=== PATIENT | male | born 1960 | race Caucasian/White ===

== ENCOUNTER 2020-06-07 08:02 | Emergency (ER) | payer OTHER ==
[~2020-06-07] VITALS: Ht 182.9 cm; Wt 74.8 kg
[~2020-06-07 08:02] MED LIST: FLEXERIL PO; IBUPROFEN 400400 M1 PO; IBUPROFEN 800800 M1 PO; LOPRESSOR25 PO; NOHOMEMEDICATIONS; NORCO 5-325 TA1 EACH PO; PEPCID20 MG PO; PRILOSEC 20 MG20 MG PO; TESSALON200 MG PO; VENTOLIN HFA 1818 GM INH; ZPAK PO
[2020-06-07 08:52] LABS: ABSOLUTE NEUTROPHILS 5.1 thou/uL (1.4-8.2); BASOPHILS 0.7 % (0.0-2.0); EOSINOPHILS 3.7 % (0.0-3.0); HEMATOCRIT 42.2 % (42.0-52.0); HEMOGLOBIN 14.1 gm/dL (14.0-18.0); LYMPHOCYTES 27.7 % (24.0-44.0); MCH 30.6 pg (26.0-34.0); MCHC 33.5 g/dL (28.0-37.0); MCV 91.3 fL (80.0-100.0); MONOCYTES 8.3 % (1.0-8.0); PLATELET COUNT 365 thou/uL (150-400); POLYS 59.6 % (36.0-66.0); RBC 4.62 mil/uL (4.50-6.00); RDW 13.1 % (10.5-14.5); WBC 8.6 thou/uL (4.0-11.0)
[2020-06-07 09:00] LABS: ANION GAP 8 mmol/L (7-16); BUN 25 mg/dL (7-18); CALCIUM 9.1 mg/dL (8.5-10.1); CHLORIDE 103 mmol/L (98-107); CO2 29 mmol/L (21-32); CREATININE 1.5 mg/dL (0.7-1.3); GLUCOSE 94 mg/dL (74-106); POTASSIUM 4.2 mmol/L (3.5-5.1); SODIUM 140 mmol/L (136-145)
[2020-06-07 09:05] LABS: MAGNESIUM 1.7 mg/dL (1.8-2.4); TROPONIN-I <0.06 ng/mL (<0.06)
[2020-06-07 11:40] VITALS: BP 156/94
--- NOTE | 2020-06-07 15:58 | EKG ---
[facility] [place] [address] ELECTROCARDIOGRAM REPORT Name: MOHAMUD ELDER Room #: DEP [facility]#: [id number] Admission: 06/07/20 Attend Phys: Discharge: 06/07/20 Date of : 62 Report #: [id number] THIS REPORT FOR: cc: MICHEL - Ebony family physician/PCP MICHEL - [facility] family physician/PCP Edmundo Langston MD [facility] THIS REPORT FOR: //name// [facility] ED Test Date: 2020-06-07 Test Time: 08:44:01 Pat Name: MOHAMUD ELDER Department: Room: Gender: Metal [employer]: esheets : 1960 Requested By: Jorge A Palomo Order Number: [id number] MD: Edmundo Langston Measurements Intervals [place] Rate: 93 P: 81 MA: 152 QRS: 70 QRSD: 87 T: 80 QT: 384 QTc: 478 Interpretive Statements Sinus rhythm Consider left atrial enlargement Anteroseptal infarct, old Compared to ECG 04/12/2016 12:47:44 Myocardial infarct finding now present Sinus tachycardia no longer present Electronically Signed On 06-07-2020 15:58:08 CDT by Edmundo Langston [email or web address] <ELECTRONICALLY SIGNED> By: Edmundo Langston MD, FACC 06/07/20 1558 0844 Edmundo Langston MD, [facility] /EPI
== END 2020-06-07 11:40 | disposition home or self-care (01) ==
LOC: ER 08:02
PROVIDERS: Emergency Medicine
DX: R20.2 Paresthesia of skin (principal); R51.9 Headache, unspecified; I10 Essential (primary) hypertension; J44.9 Chronic obstructive pulmonary disease, unspecified; F17.210 Nicotine dependence, cigarettes, uncomplicated; Z79.899 Other long term (current) drug therapy; Z88.0 Allergy status to penicillin

== ENCOUNTER 2020-12-24 11:39 | Emergency (ER) | payer OTHER ==
[~2020-12-24] VITALS: Ht 182.9 cm; Wt 77.1 kg
[2020-12-24 12:30] LABS: ABSOLUTE NEUTROPHILS 5.9 thou/uL (1.4-8.2); BASOPHILS 0.7 % (0.0-2.0); EOSINOPHILS 2.9 % (0.0-3.0); HEMATOCRIT 40.7 % (42.0-52.0); HEMOGLOBIN 13.8 gm/dL (14.0-18.0); LYMPHOCYTES 18.5 % (24.0-44.0); MCV 91.2 fL (80.0-100.0); MONOCYTES 7.7 % (1.0-8.0); PLATELET COUNT 315 thou/uL (150-400); POLYS 70.2 % (36.0-66.0); RBC 4.47 mil/uL (4.50-6.00); RDW 13.4 % (10.5-14.5); WBC 8.4 thou/uL (4.0-11.0)
[2020-12-24 12:38] LABS: CALCIUM 8.4 mg/dL (8.5-10.1); CREATININE 1.5 mg/dL (0.7-1.3); POTASSIUM 4.2 mmol/L (3.5-5.1)
[2020-12-24 12:45] LABS: ALBUMIN 3.7 g/dL (3.4-5.0); TOTAL BILIRUBIN 0.2 mg/dL (0.2-1.0); TOTAL PROTEIN 7.1 g/dL (6.4-8.2)
[2020-12-24 14:44] LABS: URINE BILIRUBIN NEGATIVE (Negative); URINE BLOOD NEGATIVE (Negative); URINE CLARITY CLEAR; URINE COLOR YELLOW; URINE GLUCOSE-RANDOM* NEGATIVE (Negative); URINE KETONES NEGATIVE (Negative); URINE LEUKOCYTES-REFLEX NEGATIVE (Negative); URINE NITRITE-REFLEX NEGATIVE (Negative); URINE PROTEIN (DIPSTICK) NEGATIVE (Negative); URINE SPECIFIC GRAVITY 1.025 (1.005-1.035); URINE UROBILINOGEN 0.2 E.U./dl (0.2-1.0)
[2020-12-24] MEDS ORDERED: PREDNISONE 20 M20 MG PO (14:59)
[2020-12-24] MEDS ORDERED: HYDROCODON-ACE1 EAC7 PO (14:59)
[2020-12-24] MEDS ORDERED: ZANAFLEX4 MG PO (14:59)
[2020-12-24 15:13] VITALS: BP 152/89
== END 2020-12-24 15:14 | disposition home or self-care (01) ==
LOC: ER 11:39
PROVIDERS: Nurse Practitioner
DX: S30.0XXA Contusion of lower back and pelvis, initial encounter (principal); I10 Essential (primary) hypertension; J44.9 Chronic obstructive pulmonary disease, unspecified; F17.210 Nicotine dependence, cigarettes, uncomplicated; Z88.0 Allergy status to penicillin; V89.9XXA Person injured in unspecified vehicle accident, initial encounter; Y93.89 Activity, other specified; Y92.89 Other specified places as the place of occurrence of the external cause; Y99.8 Other external cause status